=== PATIENT | male | born 1960 | race African-American/Black ===

== ENCOUNTER 2024-11-28 22:36 | Emergency (ER) | payer MEDICARE, OTHER ==
[~2024-11-28] VITALS: Ht 170.2 cm; Wt 48.5 kg
[2024-11-28] MEDS: IV NORMAL SALINE 1000 ML BAG IV ONE (22:45)
[2024-11-28] MEDS ORDERED: ONDA4TAB5 PO (22:59)
[2024-11-28] MEDS ORDERED: AMLO10TA59 PO (22:59)
[2024-11-28] MEDS ORDERED: RIVA10TA PO (22:59)
[2024-11-28] MEDS ORDERED: TAMS-3 PO (22:59)
[2024-11-28] MEDS ORDERED: ATOR20TA PO (22:59)
[2024-11-28] MEDS ORDERED: MIRT7.5T10 PO (22:59)
[2024-11-28] MEDS ORDERED: LISI20TA30 PO (22:59)
[2024-11-28] MEDS ORDERED: ASPI81TA31 PO (22:59)
[2024-11-28 23:03] LABS: BASOPHILS # (AUTO) 0.1 K/UL (0.0-0.2); BASOPHILS % (AUTO) 0.7 % (0.0-2.0); DIFFERENTIAL COMMENT 1; EOSINOPHILS # (AUTO) 0.3 K/uL (0.0-0.7); HEMATOCRIT 41.3 % (36.7-47.1); HEMOGLOBIN 13.9 g/dL (12.5-16.3); LYMPHOCYTES # (AUTO) 3.4 K/uL (0.8-4.8); LYMPHOCYTES % (AUTO) 21.9 % (20.5-51.5); MEAN CORPUSCULAR HGB CONC 34 g/dL (32.5-36.3); MONOCYTES # (AUTO) 0.9 K/uL (0.1-1.30); MONOCYTES % (AUTO) 6.2 % (0.0-11.0); NEUTROPHILS # (AUTO) 10.6 K/uL (1.8-8.9); NEUTROPHILS % (AUTO) 69.2 % (38.5-71.5); PLATELET COUNT (AUTO) 401 K/uL (152-348); RED BLOOD CELL COUNT(AUTO) 4.64 MIL/uL (4.06-5.63); RED CELL DISTRIBUTION WIDTH 14.5 % (12.1-16.2); WHITE BLOOD COUNT (AUTO) 15.3 K/uL (3.6-10.2)
[2024-11-28 23:16] LABS: CALCIUM 9.8 mg/dL (8.5-10.1); CARBON DIOXIDE 34 mmol/L (21-32); CHLORIDE 106 mmol/L (98-107); CREATININE 1.3 mg/dL (0.6-1.3); GLUCOSE 116 mg/dL (74-106); POTASSIUM 3.5 mmol/L (3.5-5.1); SODIUM SERUM 149 mmol/L (136-145); UREA NITROGEN, BLOOD 24 mg/dL (7-18)
[2024-11-28 23:29] LABS: ALANINE AMINOTRANSFERASE 41 U/L (16-63); ALBUMIN 3.9 g/dL (3.4-5.0); ALKALINE PHOSPHATASE 118 U/L (50-136); ASPARTATE AMINOTRANSFERASE 27 U/L (15-37); BILIRUBIN,DIRECT 0.2 mg/dL (0.0-0.2); LIPASE 28 U/L (16-77); TOTAL PROTEIN, SERUM 9.4 g/dL (6.4-8.2)
[2024-11-29] MEDS: IV NORMAL SALINE 1000 ML BAG IV ONE (02:30)
[2024-11-29] MEDS ORDERED: CEFTRIAXONE 1 G VIAL ONE (03:29)
[2024-11-29] MEDS: CEFTRIAXONE 1 G in IV DEXTROSE 5% 50 ML IV ONE (03:50)
[2024-11-29] MEDS: IV NS 1000 ML 1,000 ML IV ONE (04:00)
[2024-11-29 05:01] LABS: *BILIRUBIN,URIN NEGATIVE (NEGATIVE); *BLOOD, URINE NEGATIVE (NEGATIVE); *CLARITY,URINE CLEAR (CLEAR); *COLOR,URINE YELLOW (YELLOW); *KETONES,URINE NEGATIVE (NEGATIVE); *PROTEIN,URINE 1+ (NEGATIVE); LEUKOCYTE ESTERASE ,URINE NEGATIVE (NEGATIVE); NITRITE, URINE NEGATIVE (NEGATIVE); PH,URINE 7.5 (5.0-8.0); UGLUCOSE NEGATIVE (NEGATIVE)
[2024-11-29 05:09] LABS: BACTERIA,URINE NONE SEEN /HPF (NONE SEEN); MUCUS,URINE FEW /LPF (0-FEW); RBC,URINE 0-3 /HPF (0-3); SQUAMOUS EPITHELIAL CELL,UR NONE SEEN /HPF (NONE SEEN); WBC,URINE NONE SEEN /HPF (0-3)
[2024-11-29] MEDS ORDERED: MAGNESIUM CITRATE 296 ML BOTTLE ONE (05:38)
[2024-11-29] MEDS ORDERED: LACT10SO58 PO (05:42)
[2024-11-29] MEDS: MAGNESIUM CITRATE 296 ML BOTTLE PO ONE (05:55)
[2024-11-29] MEDS ORDERED: LACTULOSE 20 G/30 ML LIQUID UDC ONE (07:02)
[2024-11-29] MEDS ORDERED: BISACODYL 5 MG TABLET.DR PO ONE (07:02)
[2024-11-29] MEDS: BISACODYL 5 MG TABLET.DR PO ONE (07:05)
[2024-11-29] MEDS: LACTULOSE 20 G/30 ML LIQUID UDC PO ONE (07:05)
[2024-11-29] MEDS ORDERED: ONDANSETRON 4 MG/2 ML VIAL ONE (08:19)
[2024-11-29] MEDS: ONDANSETRON 4 MG/2 ML VIAL IV ONE (08:22)
[2024-11-29 09:26] VITALS: BP 153/89; TEMP 98.7; O2SAT 99
== END 2024-11-29 09:27 ==
LOC: ER 22:45
DX: E86.0 Dehydration (principal); R11.2 Nausea with vomiting, unspecified; Z79.01 Long term (current) use of anticoagulants; Z79.82 Long term (current) use of aspirin; Z79.899 Other long term (current) drug therapy
CPT/HCPCS: 99285; 74176; 71045; 96361 ×2; 80076; 80048; 83690; 85025; 84484; 36415 ×2; 93005; 96365; 96375; 81001; 84145; 87040; 83605; J7040 ×2; J0696; J2405; A4606; A4663; C1758